=== PATIENT | male | born 1980 | race Two or more races ===

== ENCOUNTER 2016-11-20 10:38 | Emergency (ER) | payer OTHER ==
[~2016-11-20] VITALS: Ht 180.3 cm; Wt 99.9 kg
[2016-11-20 11:01] VITALS: BP 164/97
== END 2016-11-20 11:35 | disposition home or self-care (01) ==
LOC: ER 10:52
DX: S39.012A Strain of muscle, fascia and tendon of lower back, initial encounter (principal); X58.XXXA Exposure to other specified factors, initial encounter; Y93.89 Activity, other specified; Y99.8 Other external cause status; Y92.89 Other specified places as the place of occurrence of the external cause